=== PATIENT | female | born 1960 | race Hispanic/Latino ===

== ENCOUNTER → 2020-07-27 | Day surgery (SDC) | payer MEDICARE, BC ==
[2020-07-24 15:43] LABS: BASOPHILS # (AUTO) 0.1 (0.0-0.1); BASOPHILS % 0.7 % (0.0-1.0); EOSINOPHILS # (AUTO) 0.3 (0.0-0.4); EOSINOPHILS % 3.5 % (0.0-6.0); HEMATOCRIT 40.7 % (34.2-44.1); HEMOGLOBIN 13.3 g/dL (12.0-16.0); LYMPHOCYTES # (AUTO) 1.6 (1.0-3.2); MEAN CORPUSCULAR HEMOGLOBIN 30.3 pg (28-32); MEAN CORPUSCULAR HGB CONC 32.7 g/dL (31-35); MEAN CORPUSCULAR VOLUME 92.7 fL (81-99); MONOCYTES # (AUTO) 0.5 (0.2-0.8); MONOCYTES % 7.5 % (4.4-11.3); NEUTROPHILS # (AUTO) 4.7 (2.1-6.9); NEUTROPHILS % 65.9 % (38.7-80.0); PLATELET COUNT 177 x10e3/uL (140-360); RED BLOOD COUNT 4.39 x10e6/uL (3.6-5.1)
[2020-07-24 15:54] LABS: INR 0.86; PROTHROMBIN TIME 12.3 seconds (11.9-14.5)
[2020-07-24 16:04] LABS: ALBUMIN 3.9 g/dL (3.5-5.0); ALBUMIN/GLOBULIN RATIO 1.2 (0.8-2.0); ANION GAP 16.3 mmol/L (8-16); CREATININE, SERUM 1.44 mg/dL (0.57-1.11); POTASSIUM 5.3 mmol/L (3.5-5.1)
[~2020-07-27] MED LIST: ALDACTONE25 MG PO; ALIGN4 MG PO; B-121000 MCG PO; BENTYL10 MG PO; CALCIUM CARBON500 MG PO; CARISOPRODOL350 MG PO; CIPRO500 MG PO; CLOTRIMAZOLE-BE15 GM; CYANOCOBAL1000 MCG/M IM; CYMBALTA60 MG PO; DICYCLOMINE HCL10 MG PO; EPI PEN IM; EPIPEN0.3 MG/0.3; FLUTICASONE PRO15 GM TOP; FLUTICASONE TOP; FUROSEMIDE20 MG PO; FUROSEMIDE40 MG PO; KETAMINE HCL INJ 50 MG/ML 10 ML VIAL ONE; L-CARNITINE500 MG PO; LASIX20 MG PO; LEVOCETIRIZINE D5 MG PO; LUMIGAN2.5 M1 OP; LYRICA50 MG PO; METHOCARBAMOL750 MG PO; METROCREAM45 GM TOP; METROLOTION59 ML TOP; METRONIDAZOLE45 G1 TP; MULTI-VITAMIN1 EACH PO; MULTIVITAMIN W1 EACH; OMEPRAZOLE20 M1 PO; OMEPRAZOLE40 MG PO; PREDNISONE10 MG PO; PREDNISONE5 MG PO; PROBIOTIC COMP1 EACH PO; PROBIOTIC PO; PROPOFOL IV EMULSION 10 MG/ML 20 ML VIAL ONE; SPIRONOLACTONE100 MG PO; SPIRONOLACTONE50 MG PO; TACROLIMUS1 MG PO; TRIAMCINOLONE A15 G4 TP; ULTRAM 50MG50 MG PO; ULTRAM50 MG PO; VITAMIN B12 IM; WALKER; ZOLPIDEM TARTRA10 MG PO; [UNRECOGNIZED DRUG - OTHER]; iron infusion
[2020-07-27 10:10] VITALS: BP 134/81
== END | disposition home or self-care (01) ==
LOC: OR 06:40
PROVIDERS: ATTEND Internal Medicine Gastroenterology
DX: K52.9 Noninfective gastroenteritis and colitis, unspecified (principal); K64.8 Other hemorrhoids; Z71.3 Dietary counseling and surveillance; G47.33 Obstructive sleep apnea (adult) (pediatric); N18.9 Chronic kidney disease, unspecified; I45.10 Unspecified right bundle-branch block; E66.01 Morbid (severe) obesity due to excess calories; Z91.041 Radiographic dye allergy status; Z88.2 Allergy status to sulfonamides; Z91.048 Other nonmedicinal substance allergy status; Z01.810 Encounter for preprocedural cardiovascular examination; Z01.812 Encounter for preprocedural laboratory examination; Z20.822 Contact with and (suspected) exposure to COVID-19; Z68.43 Body mass index [BMI] 50.0-59.9, adult; Z94.4 Liver transplant status
CPT/HCPCS: 36415; 45380; 80053; 85025; 85610; 85730; 93005; J2704; U0002